=== PATIENT | female | born 1970 | race Caucasian/White ===

== ENCOUNTER 2016-07-10 21:51 | Emergency (ER) | payer OTHER ==
--- NOTE | ~2016-07-10 | EKG ---
PATIENT: CHAVEZ BAIG UNIT #: [id number] Ventricular Rate: 97 BPM Atrial Rate: 97 BPM P-R Interval: 144 ms QRS Duration: 90 ms Q-T Interval: 388 ms QTC Calculation(Bezet): 492 ms P [place] Line: 64 degrees Calculated R [place] Line: 45 degrees Calculated T [place] Line: 48 degrees Diagnosis Line: Normal sinus rhythm Diagnosis Line: Poor R wave progression questionable lead position Diagnosis Line: or body habitus Diagnosis Line: Borderline ECG Diagnosis Line: When compared with ECG of 11-SEP-2014 14:51, Diagnosis Line: Vent. rate has increased BY 38 BPM Diagnosis Line: Confirmed by KALINA FORD MD ([id number]) on Diagnosis Line: 07/19/2016 7:15:31 AM INTERPRETING : MALINI
--- NOTE | ~2016-07-10 | CR63 ---
[facility], [place] A Service of [facility] RADIOLOGY TEXT RESULTS PATIENT: CHAVEZ BAIG LOCATION: SED : 70 UNIT #: [id number] AGE: [address]: Bret White MD SEX: F ORDER DR: [id number] [place] [id number] E MR#: [id number] Acc #: [id number] NAME: CHAVEZ BAIG : 1970 SEX: F STUDY DATE/TIME: 07/10/2016 UNIT: SED ROOM: STUDY DESCRIPTION: CR Chest 2 View Attending Physician: Bret White M.D. Ordering Physician: Bret White M.D. Primary Care Physician: Umesh Zhang M.D. MEDICAL IMAGING REPORT This report is preliminary unless electronic signature is present. EXAM Chest x-ray 07/10 at 2221 hours INDICATIONS Anxiousness with pain all over for the last 2 months. History of hypertension. COMPARISON 06/28/2014 FINDINGS PA and lateral examination of the chest upright shows a good expansion of the parenchyma with a normal distribution of the pulmonary vascularity. There is no indication of congestion, effusion, infiltrate, tumor, or nodular density. The pleural reflections and diaphragmatic contours are normal. The cardiac silhouette and mediastinal anatomy is within normal limits. IMPRESSION Normal chest. Dictated by... Pillo Miller Jr., M.D. THIS IS AN ELECTRONICALLY VERIFIED REPORT Pillo Miller Jr., M.D. at 07/11/2016 9:23 PM BREANNE/chino TD: 07/11/2016 08:51 [facility] [place] A Service [facility] RADIOLOGY TEXT RESULTS PATIENT: CHAVEZ BAIG LOCATION: SED : 70 UNIT #: [id number] AGE: [address]: Bret White MD SEX: F ORDER DR: JANEEN #: [id number] MEDICAL IMAGING REPORT Page 1 of 1
[~2016-07-10 21:51] MED LIST: ASPIRIN81 MG PO; ATIVAN0.5 MG PO; BACTRIM DS TABL1 TA1 PO; BENADRYL25 M1 PO; CIPRO PO; DEPRESSION PILL; DICYCLOMINE HCL20 MG PO; DIFLUCAN100 MG PO; ELIMITE60 G1 TP; HYDROCHLOROTH12.5 M1 PO; HYDROCODON-ACE1 EAC9 PO; LEVAQUIN750 M1 PO; MEDROL DOSEPAK4 MG PO; METOPROLOL TAR25 MG PO; METOPROLOL TART25 MG PO; MOBIC PO; MOTRIN400 M1 PO; NAPROSYN250 M1 PO; NEURONTIN600 MG PO; NO MEDICATIONS; PAROXETINE HCL20 MG; PAXIL30 MG PO; PAXIL40 MG PO; PHENERGAN PR; PHENERGAN25 M1 PO; PYRIDIUM PO; TRAMADOL HCL E100 M1 PO; TRIAMCINOLONE AC1 GM EXT; TYLENOL #3 PO; ULTRAM PO; VIBRAMYCIN100 M1 PO; VICODIN 5/1 TAB 5/50 PO; VOLTAREN75 MG; ZOFRAN PO
[2016-07-10 22:19] LABS: BASOPHIL% 0.3 % (0-2.5); EOSINOPHIL# 0.3 X10e3 (0-0.7); EOSINOPHIL% 2.2 % (0.0-7.0); HEMATOCRIT 43.6 % (35.0-45.0); HEMOGLOBIN 14.7 gm/dL (12.0-16.0); LYMPHOCYTE# 3.5 X10e3 (1.0-3.5); LYMPHOCYTE% 27.7 % (17.0-45.0); MEAN CELL VOLUME 90.1 FL (83-96); MEAN CORPUSCULAR HEMOGLOBIN 30.3 PG (28-34); MEAN CORPUSCULAR HGB CONC 33.7 g/dL (30-36); MEAN PLATELET VOLUME 6.7 FL (6.5-11.5); MONOCYTE# 0.6 X10e3 (0-1.0); NEUTROPHIL# 8.1 X10e3 (1.5-7.1); NEUTROPHIL% 64.8 % (40-75); PLATELET COUNT 366 X10e3 (140-420); RED BLOOD COUNT 4.84 X10e (3.90-5.30); WHITE BLOOD COUNT 12.6 X10e3 (4.0-10.5)
[2016-07-10 22:21] LABS: DIFF IND NO
[2016-07-10 22:34] LABS: POC - CKMB 1.5 ng/mL (0.0-7.9)
[2016-07-10 22:35] LABS: POC - TROPONIN <0.05 ng/mL (<=0.05)
[2016-07-10 22:35] LABS: BUN/CREATININE RATIO 22.85; CALCIUM SERUM 8.7 mg/dL (8.4-10.2); CREATININE SERUM 0.7 mg/dL (0.6-1.4); GLOM FILT RATE Estimated 103.9 mL/min (>60); POTASSIUM 3.3 mmol/L (3.5-5.1)
== END 2016-07-11 00:59 | disposition home or self-care (01) ==
LOC: SED 21:51
PROVIDERS: Emergency Medicine
DX: F41.9 Anxiety disorder, unspecified (principal); F10.10 Alcohol abuse, uncomplicated; I10 Essential (primary) hypertension; Z79.899 Other long term (current) drug therapy
CPT/HCPCS: 71020; 80048; 82553; 84484; 84703; 85025; 93005; 99283; G0480